=== PATIENT | male | born 1955 | race Two or more races ===

== ENCOUNTER → 2024-11-25 | Outpatient (CLI) | payer MEDICARE, BC, SELFPAY ==
--- NOTE | 2024-11-25 14:30 | XR_ITS ---
Examination: MRI lumbar spine without contrast Date and time of exam: November 25, 2024 1456 hrs. Indications: Patient fell one year ago with injury to lower back, lower back pain, radiating to the left hip Technique: Multiple MRI axial and sagittal sections lumbar spine. Sagittal T2-weighted images, TR 3500, TE 118 T1 weighted transverse sections, TR 688 T8.5, T2-weighted sagittal sections T1 weighted sagittal sections TR 621, TE 30 T2 axial sections, TR 4, 190, TE 84. Findings: Study is limited secondary to patient's size No lumbar fracture Prominent lumbar spondylosis Moderate to advanced diffuse lumbar degenerative disc disease No spondylolisthesis L5-S1 6 mm central lumbar disc bulge extending to the foraminal regions with mild left severe right L5 ganglionic compression L4-L5 5 mm central lumbar disc bulge extending to the right foraminal region with severe right L4 ganglionic compression L3-L4 6 mm central lumbar disc bulge L2-L3 4 mm central lumbar disc bulge L1-L2 no disc protrusion Impression: Moderate to advanced diffuse lumbar degenerative disc disease L5-S1 6 mm central lumbar disc bulge extending to the foraminal regions with mild left severe right L5 ganglionic compression L4-L5 5 mm central lumbar disc bulge extending to the right foraminal region with severe right L4 ganglionic compression L3-L4 6 mm central lumbar disc bulge
--- NOTE | 2024-11-25 15:00 | XR_ITS ---
Examination: MRI left hip without intravenous contrast. Date and time of exam: November 25, 2024 1436 hrs. Indications: Patient fell one year ago with injury to lower back, lower back pain radiating down the left hip Technique: Multiple MRI images of the left hip have been obtained T1 weighted coronal sections, TR 500, TE 12 Proton density coronal fat saturated images, TR 3000, TE 71 T2-weighted coronal images, 5850, TE 104 T1-weighted axial images, TR 521, TE 12 T2-weighted axial fat suppressed images, TR 5730, TE 103. Findings: Moderate narrowing hip joints bilaterally No occult fracture or marrow edema bone contusion or avascular necrosis involving either hip Multiple left hip superior labral tears, small [id number] images Greater trochanteric bursitis left hip Bones of the pelvis intact Contracted urinary bladder Transverse prostate dimension 5.4 cm Impression: Moderate narrowing hip joints Multiple left hip superior labral tears Greater trochanteric bursitis left hip
== END | disposition home or self-care (01) ==
LOC: SMRI 13:28
PROVIDERS: PCP Internal Medicine; Referring Provider Internal Medicine; Visit Provider Internal Medicine
DX: M51.369 Other intervertebral disc degeneration, lumbar region without mention of lumbar back pain or lower extremity pain (principal); G95.20 Unspecified cord compression; M70.62 Trochanteric bursitis, left hip; S73.192A Other sprain of left hip, initial encounter; W19.XXXA Unspecified fall, initial encounter
CPT/HCPCS: 72148; 73721

== ENCOUNTER → 2024-11-30 | Outpatient (CLI) | payer MEDICARE, BC, SELFPAY ==
[2024-11-30 09:50] LABS: Collection Type, Urine Clean Catch
[2024-11-30 10:32] LABS: Basophils # (Auto) 0.1 Thou/mm3 (0.0-0.2); Basophils % (Auto) 1 % (0-2.5); Eosinophils # (Auto) 0.3 Thou/mm3 (0.0-0.5); Eosinophils % (Auto) 4 % (0-10); Hematocrit 45.2 % (41.0-53.0); Hemoglobin 15.4 g/dL (13.5-16.0); Immature Granulocytes % (Auto) 0 % (0-0); Immature Granulocytes Auto 0.02 Thou/mm3 (0.00-0.00); Lymphocytes # (Auto) 1.5 Thou/mm3 (1.0-4.8); Lymphocytes % (Auto) 21 % (10-50); Mean Corpuscular HGB Conc 34.1 g/dl (31.0-37.0); Mean Corpuscular Volume 97 fL (80-100); Monocytes # (Auto) 0.7 Thou/mm3 (0.0-0.8); Monocytes % (Auto) 10 % (0-12); Neutrophils # (Auto) 4.4 Thou/mm3 (1.8-7.7); Neutrophils % (Auto) 63 % (37-80); Nucleated Red Blood Cell % 0 /100 WBC (0); Platelet Count 228 Thou/mm3 (140-440); RDW Standard Deviation 49.2 fL (35.1-43.9); Red Blood Count 4.67 Miln/mm3 (4.50-5.90)
[2024-11-30 10:40] LABS: Bilirubin,Urine Negative (Negative); Blood,Urine Negative (Negative); Clarity,Urine Clear (Clear/Hazy); Color,Urine Yellow (Lt Yel-Yel); Glucose, Urine Negative (Negative); Ketones,Urine Negative (Negative); Leukocyte Esterase,Urine Positive (Negative); Nitrite,Urine Negative (Negative); PH,Urine 6.5 (5.0-7.0); Protein,Urine Trace (Neg - Trace); RBC,Urine 3 /hpf (0-3); Squamous Epithelial Cell,Urine 4 /hpf (0-5); WBC,Urine 10 /hpf (0-5)
[2024-11-30 10:47] LABS: Glucose Estimated Average 114 mg/dL (80-131); Hemoglobin A1C 5.6 % Hgb (4.8-6.0)
[2024-11-30 10:49] LABS: PSA Medicare Annual Scrn 0.73 ng/mL (0-4.00)
[2024-11-30 11:43] LABS: Alanine Aminotransferase 47 U/L (10-49); Albumin, Serum 3.9 gm/dL (3.4-4.8); Alkaline Phosphatase 101 U/L (46-116); Anion Gap 7 (7-16); Aspartate Amino Transferase 50 U/L (0-34); BUN/Creatinine Ratio 20 Ratio (12-20); Bilirubin,Direct 0.2 mg/dL (0.0-0.3); Bilirubin,Total 0.7 mg/dL (0.3-1.2); Blood Urea Nitrogen 14 mg/dL (9-23); Calcium 9.1 mg/dL (8.3-10.6); Carbon Dioxide 27.9 mMol/L (20.0-31.0); Chloride 105 mMol/L (98-107); Creatinine (Component) 0.7 mg/dL (0.6-1.3); Glucose 105 mg/dL (74-106); Osmolality,Calculated 279 (275-295); Phosphorous 3.3 mg/dL (2.4-5.1); Potassium 4.6 mMol/L (3.4-5.1); Sodium 140 mMol/L (136-145); Total Protein 6.3 gm/dL (5.7-8.2); Uric Acid 7.2 mg/dL (3.7-9.2); eGFR > 60 See Note
[2024-11-30 12:01] LABS: Thyroid Stimulating Hormone 1.67 uIU/mL (0.55-4.78)
== END | disposition home or self-care (01) ==
LOC: COPL 08:58
PROVIDERS: PCP Internal Medicine; Referring Provider Internal Medicine; Visit Provider Internal Medicine
DX: Z00.00 Encounter for general adult medical examination without abnormal findings (principal); I10 Essential (primary) hypertension; K76.89 Other specified diseases of liver; D51.9 Vitamin B12 deficiency anemia, unspecified; E55.9 Vitamin D deficiency, unspecified
CPT/HCPCS: 36415; 80048; 80076; 81001; 83036; 84100; 84153; 84443; 84550; 85025; G0103

== ENCOUNTER → 2024-12-18 | Outpatient (CLI) | payer MEDICARE, BC, SELFPAY ==
--- NOTE | 2024-12-18 11:18 | EKG_ITS ---
[facility] Test Date: 2024-12-18 Pat Name: YOKASTA RIZO Department: Room: - Gender: Male Inspection Manager: EBENEZER : 1955 Requested By: Nando Bentley Order Number: [id number] Reading MD: Nando Bentley Measurements Intervals [place] Rate: 55 P: 13 [place]: 147 QRS: 1 QRSD: 90 T: 23 QT: 406 QTc: 391 Interpretive Statements SINUS BRADYCARDIA No previous ECG available for comparison /[id number]/[email or web address]/[id number].pdf
[2024-12-18 11:27] LABS: Basophils # (Auto) 0.1 Thou/mm3 (0.0-0.2); Basophils % (Auto) 1 % (0-2.5); Eosinophils # (Auto) 0.3 Thou/mm3 (0.0-0.5); Eosinophils % (Auto) 5 % (0-10); Hematocrit 47.3 % (41.0-53.0); Immature Granulocytes % (Auto) 0 % (0-0); Immature Granulocytes Auto 0.02 Thou/mm3 (0.00-0.00); Lymphocytes # (Auto) 1.5 Thou/mm3 (1.0-4.8); Lymphocytes % (Auto) 24 % (10-50); Mean Corpuscular HGB Conc 33.8 g/dl (31.0-37.0); Mean Corpuscular Hemoglobin 32.7 pg (25.0-35.0); Mean Corpuscular Volume 97 fL (80-100); Monocytes # (Auto) 0.7 Thou/mm3 (0.0-0.8); Monocytes % (Auto) 11 % (0-12); Neutrophils # (Auto) 3.8 Thou/mm3 (1.8-7.7); Neutrophils % (Auto) 59 % (37-80); Nucleated Red Blood Cell % 0 /100 WBC (0); Platelet Count 229 Thou/mm3 (140-440); RDW Standard Deviation 46.7 fL (35.1-43.9); White Blood Count 6.5 Thou/mm3 (3.8-10.6)
[2024-12-18 11:58] LABS: Albumin, Serum 3.8 gm/dL (3.4-4.8); Anion Gap 8 (7-16); BUN/Creatinine Ratio 21 Ratio (12-20); Blood Urea Nitrogen 17 mg/dL (9-23); Calcium 9.1 mg/dL (8.3-10.6); Calcium (Corrected) 9.3 mg/dL (8.5-10.1); Carbon Dioxide 27.3 mMol/L (20.0-31.0); Chloride 108 mMol/L (98-107); Creatinine (Component) 0.8 mg/dL (0.6-1.3); Glucose 103 mg/dL (74-106); Osmolality,Calculated 286 (275-295); Phosphorous 4.1 mg/dL (2.4-5.1); Potassium 4.6 mMol/L (3.4-5.1); Sodium 143 mMol/L (136-145); eGFR > 60 See Note
== END | disposition home or self-care (01) ==
LOC: COPL 10:33
PROVIDERS: PCP Internal Medicine; Referring Provider Orthopaedic Surgery; Visit Provider Orthopaedic Surgery
DX: Z01.812 Encounter for preprocedural laboratory examination (principal); Z01.818 Encounter for other preprocedural examination; M51.16 Intervertebral disc disorders with radiculopathy, lumbar region
CPT/HCPCS: 36415; 80069; 85025; 93005